=== PATIENT | female | born 1980 ===

== ENCOUNTER 2024-04-24 06:55 | Day surgery (SDC) | payer OTHER ==
[~2024-04-24] VITALS: Ht 162.6 cm; Wt 81.2 kg
[2024-04-24 07:14] LABS: HCG,QUAL RESULT NEGATIVE (NEGATIVE)
[2024-04-24] MEDS ORDERED: MEPERIDINE 100 MG INJ. 100 MG/ML VIAL ONE (07:16)
[2024-04-24] MEDS ORDERED: SIMETHICONE 40 MG/0.6 ML ML ONE (07:16)
[2024-04-24] MEDS ORDERED: MIDAZOLAM HCL 5 MG/5 ML VIAL ONE (07:16)
[2024-04-24 10:40] VITALS: O2SAT 99
[2024-04-24 10:54] VITALS: BP_SYST 135; PULSE 85; RESP 16
== END 2024-04-24 09:45 | disposition home or self-care (01) ==
LOC: SDS 06:55 → SMU 07:00 → SDS 09:45
PROVIDERS: ATTEND Internal Medicine Gastroenterology
DX: K21.9 Gastro-esophageal reflux disease without esophagitis (principal); K29.30 Chronic superficial gastritis without bleeding; R10.9 Unspecified abdominal pain; I10 Essential (primary) hypertension; R12 Heartburn; E78.5 Hyperlipidemia, unspecified; Z79.899 Other long term (current) drug therapy; Z87.891 Personal history of nicotine dependence
CPT/HCPCS: 43239; 99152; 87081; 84703; 36415; 88305; 88312; 88313; G0378; J2250; J2175